=== PATIENT | male | born 1955 | race Hispanic/Latino ===

== ENCOUNTER 2017-12-18 11:13 | Emergency (ER) | payer MEDICARE ==
[2017-12-18 11:56] VITALS: BP 96/57
[2017-12-18] MEDS ORDERED: KEPPRA 1,000 MG/NS 0.75% 100ML 1,000 MG/100 ML BAG IV ONE (12:20)
--- NOTE | 2017-12-18 12:39 | Emergency Department Report ---
HPI - General Chief Complaint: Seizure Time Seen by Provider: 12/18/17 12:08 - [facility] HPI: Mann 25 The patient is a 62-year-old male with a chief complaint of seizure. The patient states he's had 4 seizures in his life including today's. The patient states his first seizure occurred in 2014, second seizure occurred several months ago the patient states he had a seizure yesterday and then today while at [place]. The patient is currently with for major depressive disorder. The patient reportedly had a generalized tonic-clonic seizure while there accompanied by urinary incontinence. Patient was sent to the ED for evaluation. Patient currently has no complaints stating he feels "okay." Location: Central nervous system Duration: Unknown Quality: Generalized tonic-clonic Severity: Unknown Modifying factors: [see above] Context: [see above] Mode of transportation: [not driving] ED Past Medical Hx - Past Medical History Hx Hypertension: Yes Hx Psychiatric Treatment: Yes (AXIETY, DEPRESSION) - Surgical History Past Surgical History?: No - Family History Family history: no significant - Social History Smoking Status: Former Smoker (none 25 years) Substance Use Type: Marijuana - Medications Home Medications: Home Medications Medication Instructions Recorded Confirmed Last Taken Type levETIRAcetam [Keppra] 500 mg PO BID #90 tablet 12/18/17 Unknown Rx ED Review of Systems ROS: Stated complaint: SEIZURE Other details as noted in HPI Constitutional: no symptoms reported Eyes: denies: eye pain ENT: denies: throat pain Cardiovascular: denies: chest pain Gastrointestinal: denies: abdominal pain Genitourinary: denies: dysuria Musculoskeletal: denies: back pain Neurological: denies: headache Psychiatric: depression Physical Exam - Physical Exam Vital Signs: Vital Signs 12/18/17 11:49 Temperature 99.4 F Pulse Rate 87 Respiratory 18 Rate Blood Pressure 96/57 O2 Sat by Pulse 96 Oximetry Physical Exam: GENERAL: The patient is well-developed well-nourished male lying on stretcher not appear to be in acute distress. [] HEENT: Normocephalic. Atraumatic. Extraocular motions are intact OS (previous right eye injury). Patient has moist mucous membranes. NECK: Supple. Trachea midline. No step-offs CHEST/LUNGS: Clear to auscultation. There is no respiratory distress noted. HEART/CARDIOVASCULAR: Regular. There is no tachycardia. There is no gallop rub or murmur. ABDOMEN: Abdomen is soft, nontender. Patient has normal bowel sounds. There is no abdominal distention. SKIN: There is no rash. There is no edema. There is no diaphoresis. NEURO: The patient is awake, alert, and oriented. The patient is cooperative. The patient has no focal neurologic deficits. The patient has normal speech. Cranial nerves II through XII grossly intact, no drift. There is no tremulousness MUSCULOSKELETAL: There is no evidence of acute injury. ED Course Vital Signs 12/18/17 11:49 Temperature 99.4 F Pulse Rate 87 Respiratory 18 Rate Blood Pressure 96/57 O2 Sat by Pulse 96 Oximetry ED Medical Decision Making - Lab Data Result diagrams: 12/18/17 Unknown 12/18/17 Unknown Laboratory Tests 12/18/17 12/18/17 12/18/17 Unknown Unknown Unknown WBC 11.0 RBC 4.46 Hgb 14.3 Hct 42.3 MCV 95 H MCH 32 MCHC 34 RDW 13.2 Plt Count 358 Sodium 138 Potassium 3.1 L Chloride 91.2 L Carbon Dioxide 34 H Anion Gap 16 BUN 8 L Creatinine 0.6 L Estimated GFR > 60 BUN/Creatinine Ratio 13 Glucose 100 Calcium 9.5 Magnesium 1.90 Total Creatine Kinase 109 Urine Opiates Screen Urine Methadone Screen Ur Barbiturates Screen Ur Phencyclidine Scrn Ur Amphetamines Screen U Benzodiazepines Scrn Urine Cocaine Screen 12/18/17 Unknown WBC RBC Hgb Hct MCV MCH MCHC RDW Plt Count Sodium Potassium Chloride Carbon Dioxide Anion Gap BUN Creatinine Estimated GFR BUN/Creatinine Ratio Glucose Calcium Magnesium Total Creatine Kinase Urine Opiates Screen Presumptive negative Urine Methadone Screen Presumptive negative Ur Barbiturates Screen Presumptive negative Ur Phencyclidine Scrn Presumptive negative Ur Amphetamines Screen Presumptive negative U Benzodiazepines Scrn Presumptive negative Urine Cocaine Screen Presumptive negative - Radiology Data Radiology results: report reviewed (CT head, CT cervical spine), image reviewed (CT head, CT cervical spine) [facility] [address] [place] [address] Cat Scan Report Signed Patient: MARTIN KLINE MR#: [id number] : 1955 Acct:[id number] Age/Sex: 62 / M ADM Date: 12/18/17 Loc: ED Attending Dr: Ordering Physician: ABIMBOLA XIAO MD Date of Service: 12/18/17 Procedure(s): CT head/brain wo con Accession Number(s): [id number] cc: ABIMBOLA XIAO MD CT HEAD WITHOUT CONTRAST INDICATION: Seizure, fall. COMPARISON: None similar at this institution. FINDINGS: Noncontrast head CT demonstrates symmetric, age-appropriate ventricles and sulci without acute or recent infarct, hemorrhage, mass effect or midline shift. Mild periventricular hypodensities, left more than right. No abnormal extra-axial fluid collections. Posterior fossa structures and basilar cisterns appear within normal limits. Symmetric eye globes. Clear paranasal sinuses and mastoid air cells. Mild leftward nasal septal deviation. Intact calvarium. Normal overlying scalp soft tissues. Multiple radiopaque dental material incidentally noted. CONCLUSION: No acute intracranial CT abnormality, as described. Thank you for the opportunity to participate in this patient's care. Transcribed By: RS Dictated By: YOLIS BYRNE MD Electronically Authenticated By: YOLIS BYRNE MD Signed Date/Time: 12/18/171251 DD/ 125 TD/TT: 12/18/17 125 [facility] [address] [place] [address] Cat Scan Report Signed Patient: MARTIN KLINE MR#: [id number] : 1955 Acct:[id number] Age/Sex: 62 / M ADM Date: 12/18/17 Loc: ED Attending Dr: Ordering Physician: ABIMBOLA XIAO MD Date of Service: 12/18/17 Procedure(s): CT cervical spine wo con Accession Number(s): [id number] cc: ABIMBOLA XIAO MD CT CERVICAL SPINE WITHOUT CONTRAST INDICATION: Seizure, fall. COMPARISON: None similar. FINDINGS: Noncontrast axial, sagittal and coronal CT reconstructions through the cervical spine demonstrate normal imaged intracranial appearance. Streak artifact from few radiopaque dental material. Intact craniocervical articulation, including the dens, occipital condyles and anterior and posterior arches of C1. Normal prevertebral soft tissues and the airway. Normal vertebral body stature and alignment, allowing for C5-C7 degenerative spurring and disc degeneration. Assessment of the spinal canal itself also compromised from C6 inferiorly due to artifact from shoulder soft tissues. Normal imaged thyroid. Clear visualized lung apices. On the obtained axial images: C2-C3 is unremarkable. C3-C4 demonstrates moderate facet arthropathy. C4-C5 demonstrates mild to moderate right facet arthropathy. C5-C6 demonstrates moderate disc narrowing. Mild bilateral facet arthropathy. Right more than left uncovertebral spurring with possible right neural foraminal narrowing as on axial image 94, series 3. C6-C7 demonstrates moderate to severe disc narrowing. Right more than left facet hypertrophy. Diffuse degenerative spurring and mild diffuse disc bulge/osteophyte complex. Left more than right neural foraminal narrowing possible, axial image 105. C7-T1 demonstrates bilateral facet arthropathy. CONCLUSION: No acute cervical spine CT abnormality with multilevel cervical spine degenerative changes noted, as described. Thank you for the opportunity to participate in this patient's care. Transcribed By: RS Dictated By: YOLIS BYRNE MD Electronically Authenticated By: YOLIS BYRNE MD Signed Date/Time: 12/18/17 1301 DD/ 1253 TD/TT: 12/18/17 1301 - Differential Diagnosis seizure Critical care attestation.: If time is entered above; I have spent that time in minutes in the direct care of this critically ill patient, excluding procedure time. ED Disposition Clinical Impression: Seizure Disposition: DC/TX-65 PSY HOSP/PSY UNIT Is pt being admited?: No Does the pt Need Aspirin: No Condition: Stable Instructions: Epilepsy (ED) Additional Instructions: You should not drive, operate heavy machinery or be around large bodies of water unattended until cleared by a neurologist. Return to the emergency department immediately should you develop worsening symptoms, fever, inability to tolerate food or liquid or any other concerns. Prescriptions: levETIRAcetam [Keppra] 500 mg PO BID #90 tablet Referrals: JAMIL JAUREGUI MD [Staff Physician] - [facility] (Dr Jauregui is a neurologist. Please follow up with him for further evaluation) Time of Disposition: 13:18
[2017-12-18 12:44] LABS: Hematocrit 42.3 % (35.5-45.6); Hemoglobin 14.3 gm/dl (11.8-15.2); Mean Corpuscular HGB Conc 34 % (32-34); Mean Corpuscular Hemoglobin 32 pg (28-32); Mean Corpuscular Volume 95 fl (84-94); Platelet Count 358 K/mm3 (140-440); Red Blood Count 4.46 M/mm3 (3.65-5.03); Red Cell Distribution Width 13.2 % (13.2-15.2)
[2017-12-18 12:55] LABS: BUN/Creatinine Ratio 13; Blood Urea Nitrogen 8 mg/dL (9-20); Calcium 9.5 mg/dL (8.4-10.2); Hemolysis Index 17
--- NOTE | 2017-12-18 12:59 | Cat Scan Report ---
CT HEAD WITHOUT CONTRAST INDICATION: Seizure, fall. COMPARISON: None similar at this institution. FINDINGS: Noncontrast head CT demonstrates symmetric, age-appropriate ventricles and sulci without acute or recent infarct, hemorrhage, mass effect or midline shift. Mild periventricular hypodensities, left more than right. No abnormal extra-axial fluid collections. Posterior fossa structures and basilar cisterns appear within normal limits. Symmetric eye globes. Clear paranasal sinuses and mastoid air cells. Mild leftward nasal septal deviation. Intact calvarium. Normal overlying scalp soft tissues. Multiple radiopaque dental material incidentally noted. CONCLUSION: No acute intracranial CT abnormality, as described. Thank you for the opportunity to participate in this patient's care.
[2017-12-18 13:08] LABS: Amphetamine Screen,Urine PRESUMPTIVE NEGATIVE; Benzodiazepines Screen,Urine PRESUMPTIVE NEGATIVE; Cocaine Screen,Urine PRESUMPTIVE NEGATIVE; Methadone Screen,Urine PRESUMPTIVE NEGATIVE; Opiate Screen,Urine PRESUMPTIVE NEGATIVE
--- NOTE | 2017-12-18 13:08 | Cat Scan Report ---
CT CERVICAL SPINE WITHOUT CONTRAST INDICATION: Seizure, fall. COMPARISON: None similar. FINDINGS: Noncontrast axial, sagittal and coronal CT reconstructions through the cervical spine demonstrate normal imaged intracranial appearance. Streak artifact from few radiopaque dental material. Intact craniocervical articulation, including the dens, occipital condyles and anterior and posterior arches of C1. Normal prevertebral soft tissues and the airway. Normal vertebral body stature and alignment, allowing for C5-C7 degenerative spurring and disc degeneration. Assessment of the spinal canal itself also compromised from C6 inferiorly due to artifact from shoulder soft tissues. Normal imaged thyroid. Clear visualized lung apices. On the obtained axial images: C2-C3 is unremarkable. C3-C4 demonstrates moderate facet arthropathy. C4-C5 demonstrates mild to moderate right facet arthropathy. C5-C6 demonstrates moderate disc narrowing. Mild bilateral facet arthropathy. Right more than left uncovertebral spurring with possible right neural foraminal narrowing as on axial image 94, series 3. C6-C7 demonstrates moderate to severe disc narrowing. Right more than left facet hypertrophy. Diffuse degenerative spurring and mild diffuse disc bulge/osteophyte complex. Left more than right neural foraminal narrowing possible, axial image 105. C7-T1 demonstrates bilateral facet arthropathy. CONCLUSION: No acute cervical spine CT abnormality with multilevel cervical spine degenerative changes noted, as described. Thank you for the opportunity to participate in this patient's care.
[2017-12-18] MEDS ORDERED: K-DUR PO ONE (13:14)
[2017-12-18 13:55] LABS: Cannabinoid Screen,Urine PRESUMPTIVE POSITIVE
== END 2017-12-18 13:18 ==
LOC: ED 11:13
DX: R56.9 Unspecified convulsions (principal); F32.9 Major depressive disorder, single episode, unspecified; I10 Essential (primary) hypertension; F12.10 Cannabis abuse, uncomplicated; Z87.891 Personal history of nicotine dependence; Z88.4 Allergy status to anesthetic agent
CPT/HCPCS: 36415; 70450; 72125; 80048; 80307; 82550; 83735; 85027; 96365; 99285; J1953

== ENCOUNTER 2017-12-30 15:36 | Emergency (ER) | payer MEDICARE ==
[2017-12-30 15:45] VITALS: BP 140/80
--- NOTE | 2017-12-30 21:16 | Emergency Department Report ---
Upper Extremity - [facility] Chief Complaint: Extremity Injury, Upper Stated Complaint: LEFT ELBOW PAIN Time Seen by Provider: 12/30/17 19:35 Upper Extremity: Left Elbow (fell over a week ago and landed on his left elbow.) ED Review of Systems ROS: Stated complaint: LEFT ELBOW PAIN Other details as noted in HPI ED Past Medical Hx - Past Medical History Hx Hypertension: Yes Hx Psychiatric Treatment: Yes (AXIETY, DEPRESSION) - Social History Smoking Status: Never Smoker Substance Use Type: None - Medications Home Medications: Home Medications Medication Instructions Recorded Confirmed Last Taken Type levETIRAcetam [Keppra] 500 mg PO BID #90 tablet 12/18/17 Unknown Rx Upper Extremity Exam - Exam General: Vital signs noted. No distress. Alert and acting appropriately. ED Course Vital Signs 12/30/17 15:43 Temperature 98.8 F Pulse Rate 76 Respiratory 18 Rate Blood Pressure 140/80 O2 Sat by Pulse 100 Oximetry Critical care attestation.: If time is entered above; I have spent that time in minutes in the direct care of this critically ill patient, excluding procedure time. ED Disposition Clinical Impression: Elbow pain, left Disposition: DC-07 LEFT AGAINST MED ADVICE Is pt being admited?: No Does the pt Need Aspirin: No Condition: Stable Referrals: PRIMARY CARE, [Primary Care Provider] - 3-5 Days Forms: AMA Form
== END 2017-12-30 21:58 | disposition left against medical advice (07) ==
LOC: ED 15:36
DX: M25.522 Pain in left elbow (principal); I10 Essential (primary) hypertension
CPT/HCPCS: 99283